=== PATIENT | female | born 1990 | race Caucasian/White ===

== ENCOUNTER → 2018-08-14 | Outpatient (CLI) | payer MEDICAID ==
[~2018-08-14] VITALS: Ht 165.1 cm; Wt 72.5 kg
[~2018-08-14] MED LIST: BUTORPHANOL 2 MG INJ IV PRN; CARBOPROST 250 MCG INJ IM PRN; IBUPROFEN 600 MG TAB PO PRN; LACTATED RINGER'S 1,000 ML IV SCH; LIDOCAINE 1% (MPF) 30 ML INJ INJ PRN; METHYLERGONOVINE 0.2 MG INJ IM PRN; MISOPROSTOL 200 MCG TAB PR PRN; OXYTOCIN 30 UNITS/LR 500 ML IV PRN; OXYTOCIN 30 UNITS/LR 500 ML IV SCH
[2018-09-02 06:59] VITALS: Ht 165.1 cm; Wt 72.5 kg
--- NOTE | 2018-09-02 07:01 | HP ---
Date/Time of Note Date/Time of Note DATE: 09/02/18 TIME: 06:50 OB - History Hx of Present Free Text/Dictation 28y.o A1 was brought from ER after u/s done showed demise at 16w3d Initial VE 4/70/-2 srom , leaking since 09/01/1804/11/1700,burst this am 0530 admitted for expectant management .add; WBC [id number], In ER received ampicillin Chief Complaint: demise Estimated Due Date: Feb 13, 2019 : 2 Para: 0 Spontaneous : 1 Therapeutic : 0 Care: Other Ultrasounds: Other (u/s on 08/13/18 13w FHR Pos) Obstetrical Complications: None Medical Complications: None Past Family/Social History * Past Medical,unremarkable surgical none OB x1 sab at 6w FH n-c Blood Type: Unknown Rubella: unknown RPR/VDRL: Unknown GBS Status: Unknown HBsAG: Unknown OB Admission Exam Physical Exam HEENT: WNL Heart: Rhythm Normal Lungs: Clear, Equal Abdomen: WNL Extremities: Normal Reflexes: Normal Cervical Dilatation: 4cm Effacement: 75% Station: -2 Membranes: Ruptured Amniotic Fluid: Other Intensity: Moderate OB Assessment/Plan Reason for admission: active labor Other Assessment: IUP 16w3d demise in labor Plan: Expectant Management JEWEL CAIN MD Sep 02, 2018 07:01
== END | disposition home or self-care (01) ==
LOC: U/S 12:10 → L-D 09-02 06:22
PROVIDERS: ATTEND Advanced Practice Midwife
DX: O20.0 Threatened abortion (principal); Z3A.00 Weeks of gestation of pregnancy not specified
CPT/HCPCS: 76801